=== PATIENT | male | born 1990 | race Caucasian/White ===

== ENCOUNTER 2024-05-08 01:31 | Emergency (ER) | payer BC, OTHER ==
[2024-05-08 01:43] VITALS: BP 117/71; PULSE 97; RESP 18; TEMP 98.3; BMI 32.3
[2024-05-08] MEDS ORDERED: KETOROLAC TROMETHAMINE 30 MG/1 ML VIAL ONE (03:19)
[2024-05-08] MEDS ORDERED: ACETAMINOPHEN 500 MG TABLET (FP) ONE (03:21)
[2024-05-08] MEDS: KETOROLAC TROMETHAMINE 30 MG/1 ML VIAL IM ONE (03:31)
[2024-05-08] MEDS: ACETAMINOPHEN 500 MG TABLET (FP) PO ONE (03:31)
[2024-05-08 03:54] LABS: URINE APPEARANCE CLEAR; URINE BILIRUBIN NEGATIVE (NEGATIVE); URINE COLOR YELLOW; URINE GLUCOSE (UA) NEGATIVE (NEGATIVE); URINE KETONE TRACE (NEGATIVE); URINE LEUK ESTERASE NEGATIVE (NEGATIVE); URINE NITRITE NEGATIVE (NEGATIVE); URINE PROTEIN NEGATIVE (NEGATIVE)
== END 2024-05-08 04:49 | disposition home or self-care (01) ==
LOC: JER 01:31
PROC: 3E0133Z Introduction of Anti-inflammatory into Subcutaneous Tissue, Percutaneous Approach (ICD-10-PCS; principal; 2024-05-08)
DX: S39.91XA Unspecified injury of abdomen, initial encounter (principal); R11.0 Nausea; R61 Generalized hyperhidrosis; R68.83 Chills (without fever); X58.XXXA Exposure to other specified factors, initial encounter
CPT/HCPCS: 81003; 87086; 99284-25